=== PATIENT | female | born 1955 | race Caucasian/White ===

== ENCOUNTER → 2017-09-14 07:11 | Outpatient (CLI) | payer BC, SELFPAY ==
[2017-09-14 09:19] LABS: Alanine Aminotransferase 39 IU/L (9-52); Aspartate Aminotransferase 37 IU/L (14-36); BUN Creatinine Ratio 17.5 (6-22); Blood Urea Nitrogen 21 mg/dL (7-17); Calcium 9.8 mg/dL (8.4-10.2); Carbon Dioxide 30 mmol/L (22-32); Chloride 99 mmol/L (98-107); Cholesterol 190 mg/dL (140-199); Estimated Glomerular Filt Rate 45.7 mL/min (>60); Glucose 91 mg/dL (80-110); HDL Cholesterol 55 mg/dL (40-60); HEMOLYSIS < 15 (0-50); LDL Cholesterol Calculated 120 mg/dL (<100); Potassium 4.5 mmol/L (3.4-5.1); Sodium 140 mmol/L (137-145); Triglycerides 76 mg/dL (35-150)
== END ==
PROVIDERS: Visit Provider Internal Medicine
DX: I10 Essential (primary) hypertension (principal); E78.5 Hyperlipidemia, unspecified
CPT/HCPCS: 36415; 80048; 80061; 84450; 84460

== ENCOUNTER → 2017-12-24 13:18 | Outpatient (CLI) | payer BC, SELFPAY ==
--- NOTE | 2017-12-24 13:23 | DI.MG.S_ITS ---
BILATERAL DIGITAL SCREENING MAMMOGRAM 3D/2D WITH CAD: 12/24/2017 CLINICAL: Routine screening. Comparison is made to exams dated: 03/20/2016 mammogram, 03/24/2014 mammogram, and 01/27/2014 mammogram - [facility]. The tissue of both breasts is heterogeneously dense. This may lower the sensitivity of mammography. Current study was also evaluated with a Computer Aided Detection (CAD) system. No significant masses, calcifications, or other findings are seen in either breast. There has been no significant interval change. IMPRESSION: NEGATIVE There is no mammographic evidence of malignancy. A 1 year screening mammogram is recommended. NOTE: For mammograms, a report in lay terms will be sent to the patient. Approximately 15% of breast malignancies will not be visualized mammographically. In the management of a palpable breast mass, a negative mammogram must not discourage biopsy of a clinically suspicious lesion. Electronically Signed By: Alberto bingham/keo:12/24/2017 15:03:09 letter sent: Normal Exam ACR BI-RADS Category 1: Negative 3341F
== END ==
PROVIDERS: Visit Provider Internal Medicine
DX: Z12.31 Encounter for screening mammogram for malignant neoplasm of breast (principal)
CPT/HCPCS: 77063; 77067

== ENCOUNTER → 2018-11-26 14:46 | Outpatient (CLI) | payer OTHER, SELFPAY ==
--- NOTE | 2018-11-26 14:48 | DI.RAD.S_ITS ---
PROCEDURE: XR KNEE RT 3V INDICATIONS: right knee pain TECHNIQUE: 3 views of the knee were acquired. COMPARISON: None. FINDINGS: Bones: No fractures or dislocations. No suspicious bony lesions. Patellofem marginal osteophytes are noted within the patellofemoral and lateral tibiofemoral compartments. Soft tissues: There is a small to moderate-sized joint effusion. No suspicious soft tissue calcifications. IMPRESSION: 1. Mild degenerative changes of the right knee. 2. Knee joint effusion. Dictated by: Coleman Barker M.D. on 11/26/2018 at 14:29 Approved by: Coleman Barker M.D. on 11/26/2018 at 14:30
== END ==
PROVIDERS: PCP Internal Medicine; Visit Provider Physician Assistant
DX: M25.561 Pain in right knee (principal); M25.461 Effusion, right knee
CPT/HCPCS: 73562

== ENCOUNTER → 2018-12-27 08:38 | Outpatient (CLI) | payer OTHER, SELFPAY ==
[2018-12-27 10:49] LABS: Alanine Aminotransferase 21 IU/L (<35); Aspartate Aminotransferase 31 IU/L (14-36); BUN Creatinine Ratio 17.3 (6-22); Blood Urea Nitrogen 19 mg/dL (7-17); Calcium 9.8 mg/dL (8.4-10.2); Carbon Dioxide 31 mmol/L (22-32); Chloride 102 mmol/L (98-107); Cholesterol 183 mg/dL (140-199); Estimated Glomerular Filt Rate 50.3 mL/min (>60); Glucose 94 mg/dL (80-110); HDL Cholesterol 43 mg/dL (40-60); HEMOLYSIS < 15 (0-50); LDL Cholesterol Calculated 128 mg/dL (<100); Potassium 4.5 mmol/L (3.4-5.1); Sodium 140 mmol/L (137-145); Triglycerides 58 mg/dL (35-150)
[2018-12-27 11:20] LABS: TSH w/ Reflex to FT4 2.17 uIU/mL (0.47-4.68)
== END ==
PROVIDERS: PCP Internal Medicine; Visit Provider Internal Medicine
DX: I10 Essential (primary) hypertension (principal); E78.5 Hyperlipidemia, unspecified; E66.3 Overweight
CPT/HCPCS: 36415; 80048; 80061; 84443; 84450; 84460

== ENCOUNTER → 2018-12-30 10:46 | Outpatient (CLI) | payer OTHER, SELFPAY ==
--- NOTE | 2018-12-30 | DI.MG.S_ITS ---
BILATERAL DIGITAL SCREENING MAMMOGRAM 3D/2D WITH CAD: 12/30/2018 CLINICAL: Routine screening. Comparison is made to exams dated: 12/24/2017 mammogram - [facility], 03/20/2016 mammogram, and 03/24/2014 mammogram - [facility]. The tissue of both breasts is heterogeneously dense. This may lower the sensitivity of mammography. Current study was also evaluated with a Computer Aided Detection (CAD) system. There are benign calcifications in both breasts. There also is a biopsy clip in the left breast. No significant masses, calcifications, or other findings are seen in either breast. There has been no significant interval change. IMPRESSION: There is no mammographic evidence of malignancy. A 1 year screening mammogram is recommended. This exam was interpreted at Station ID: [id number]. NOTE: For mammograms, a report in lay terms will be sent to the patient. Approximately 15% of breast malignancies will not be visualized mammographically. In the management of a palpable breast mass, a negative mammogram must not discourage biopsy of a clinically suspicious lesion. Electronically Signed By: Brandon simmons/keo:12/30/2018 11:36:03 letter sent: Normal Exam ACR BI-RADS Category 2: Benign Finding(s) 3342F
== END ==
PROVIDERS: PCP Internal Medicine; Visit Provider Internal Medicine
DX: Z12.31 Encounter for screening mammogram for malignant neoplasm of breast (principal)
CPT/HCPCS: 77063; 77067

== ENCOUNTER → 2020-01-09 07:35 | Outpatient (CLI) | payer BC, SELFPAY ==
[2020-01-09 08:42] LABS: Alanine Aminotransferase 18 IU/L (<35); Albumin 4.5 g/dL (3.5-5.0); Albumin Globulin Ratio 1.3 (1.0-2.8); Alkaline Phosphatase 73 U/L (38-126); Aspartate Aminotransferase 30 IU/L (14-36); BUN Creatinine Ratio 25.9 (6-22); Bilirubin Total 0.4 mg/dL (0.2-1.3); Blood Urea Nitrogen 28 mg/dL (7-17); Calcium 9.9 mg/dL (8.4-10.2); Carbon Dioxide 31 mmol/L (22-32); Chloride 102 mmol/L (98-107); Cholesterol 188 mg/dL (140-199); Estimated Glomerular Filt Rate 51.2 mL/min (>60); Globulin 3.4 g/dL (1.7-4.1); Glucose 107 mg/dL (80-110); HDL Cholesterol 44 mg/dL (40-60); HEMOLYSIS < 15 (0-50); LDL Cholesterol Calculated 123 mg/dL (<100); Potassium 4.8 mmol/L (3.4-5.1); Sodium 139 mmol/L (137-145); Total Protein 7.9 g/dL (6.3-8.2); Triglycerides 105 mg/dL (35-150)
== END ==
PROVIDERS: PCP Internal Medicine; Referring Provider Internal Medicine; Visit Provider Internal Medicine
DX: I10 Essential (primary) hypertension (principal); E78.5 Hyperlipidemia, unspecified
CPT/HCPCS: 36415; 80053; 80061

== ENCOUNTER → 2020-02-26 13:47 | Outpatient (CLI) | payer BC, SELFPAY ==
--- NOTE | 2020-02-26 | DI.MG.S_ITS ---
BILATERAL DIGITAL SCREENING MAMMOGRAM 3D/2D WITH CAD: 02/26/2020 CLINICAL: Routine screening. Comparison is made to exams dated: 12/30/2018 mammogram, 12/24/2017 mammogram - [facility], and 03/20/2016 mammogram - [facility]. The tissue of both breasts is heterogeneously dense. This may lower the sensitivity of mammography. Current study was also evaluated with a Computer Aided Detection (CAD) system. There are benign calcifications in both breasts. There also is a biopsy clip in the left breast. No significant masses, calcifications, or other findings are seen in either breast. There has been no significant interval change. IMPRESSION: BENIGN There is no mammographic evidence of malignancy. A 1 year screening mammogram is recommended. This exam was interpreted at Station ID: [id number]. NOTE: For mammograms, a report in lay terms will be sent to the patient. Approximately 15% of breast malignancies will not be visualized mammographically. In the management of a palpable breast mass, a negative mammogram must not discourage biopsy of a clinically suspicious lesion. Electronically Signed By: Malik claudio/keo:02/26/2020 14:55:52 letter sent: Normal Exam ACR BI-RADS Category 2: Benign Finding(s) 3342F
== END ==
PROVIDERS: PCP Internal Medicine; Referring Provider Internal Medicine; Visit Provider Internal Medicine
DX: Z12.31 Encounter for screening mammogram for malignant neoplasm of breast (principal)
CPT/HCPCS: 77063; 77067

== ENCOUNTER → 2021-01-19 10:47 | Outpatient (CLI) | payer BC, SELFPAY ==
--- NOTE | 2021-01-19 | DI.MG.S_ITS ---
BILATERAL DIGITAL SCREENING MAMMOGRAM 3D/2D WITH CAD: 01/19/2021 CLINICAL: Routine screening. Comparison is made to exams dated: 02/26/2020 mammogram, 12/30/2018 mammogram, and 12/24/2017 mammogram - [facility]. The tissue of both breasts is heterogeneously dense. This may lower the sensitivity of mammography. Current study was also evaluated with a Computer Aided Detection (CAD) system. There are benign calcifications in both breasts. There also is a biopsy clip in the left breast. No significant masses, calcifications, or other findings are seen in either breast. There has been no significant interval change. IMPRESSION: BENIGN There is no mammographic evidence of malignancy. A 1 year screening mammogram is recommended. This exam was interpreted at Station ID: [id number]. NOTE: For mammograms, a report in lay terms will be sent to the patient. Approximately 15% of breast malignancies will not be visualized mammographically. In the management of a palpable breast mass, a negative mammogram must not discourage biopsy of a clinically suspicious lesion. Electronically Signed By: Daniel Maldonado M.D., jr/keo:01/19/2021 12:56:06 letter sent: Normal Exam ACR BI-RADS Category 2: Benign Finding(s) 3342F
== END ==
PROVIDERS: PCP Internal Medicine; Referring Provider Internal Medicine; Visit Provider Internal Medicine
DX: Z12.31 Encounter for screening mammogram for malignant neoplasm of breast (principal)
CPT/HCPCS: 77063; 77067

== ENCOUNTER → 2022-01-27 10:43 | Outpatient (CLI) | payer MEDICARE, OTHER, SELFPAY ==
--- NOTE | 2022-01-27 | DI.MG.S_ITS ---
BILATERAL DIGITAL SCREENING MAMMOGRAM 3D/2D WITH CAD: 01/27/2022 CLINICAL: Routine screening. Comparison is made to exams dated: 01/19/2021 mammogram, 02/26/2020 mammogram, and 12/30/2018 mammogram - [facility]. Both breasts are heterogeneously dense, which may obscure small masses (category c / 51-75% glandular tissue). Current study was also evaluated with a Computer Aided Detection (CAD) system. There is a biopsy clip in the left breast. No significant masses, calcifications, or other findings are seen in either breast. There has been no significant interval change. IMPRESSION: NEGATIVE There is no mammographic evidence of malignancy. A 1 year screening mammogram is recommended. Based on the Tyrer Cuzick model (a risk assessment model) the patient's lifetime risk is 10.0% and her 10 year risk is 4.8%. According to the ACR, ACS, and NCCN guidelines, an annual breast MRI exam along with mammogram is recommended if the patient's lifetime risk is 20% or greater. This exam was interpreted at Station ID: [id number]. NOTE: For mammograms, a report in lay terms will be sent to the patient. Approximately 15% of breast malignancies will not be visualized mammographically. In the management of a palpable breast mass, a negative mammogram must not discourage biopsy of a clinically suspicious lesion. Electronically Signed By: Chiquis barber/keo:01/27/2022 14:29:15 letter sent: Normal Exam ACR BI-RADS Category 1: Negative 3341F
--- NOTE | 2022-01-27 | DI.RAD.S_ITS ---
PROCEDURE: XR DEXA AXIAL SKELETON INDICATIONS: OSTEOPOROSIS SCREENING COMPARISON: None. FINDINGS: This blank DEXA report has been sent in error by the PACS system. The correct and complete report will be forthcoming in 1-2 days. Thank you for your patience and understanding. Dictated by: Iveth Jean M.D. on 01/27/2022 at 12:03 Approved by: Iveth eJan M.D. on 01/27/2022 at 12:03
== END ==
PROVIDERS: PCP Internal Medicine; Referring Provider Internal Medicine; Visit Provider Internal Medicine
DX: Z12.31 Encounter for screening mammogram for malignant neoplasm of breast (principal); M85.88 Other specified disorders of bone density and structure, other site; Z13.820 Encounter for screening for osteoporosis; Z78.0 Asymptomatic menopausal state; K50.90 Crohn's disease, unspecified, without complications
CPT/HCPCS: 77063; 77067; 77080

== ENCOUNTER → 2022-04-20 08:47 | Outpatient (CLI) | payer MEDICARE, OTHER, SELFPAY ==
--- NOTE | 2022-04-20 08:49 | DI.RAD.S_ITS ---
PROCEDURE: XR ANKLE LT MIN 3V INDICATIONS: Calcaneal spur, left foot TECHNIQUE: 3 views of the ankle were acquired. COMPARISON: None. FINDINGS: Bones: No fracture or dislocation. Ankle mortise is normally aligned. There is a prominent plantar calcaneal spur without erosive change. There is dorsal plantar calcaneal spur at the Achilles insertion which is fragmented slightly. Minimal degenerative change at the tibiotalar joint. No suspicious bone lesions. Soft tissues: No tibiotalar joint effusion. Achilles tendon appears normal. IMPRESSION: 1. Moderate size plantar calcaneal spur without erosion. 2. Dorsal calcaneal spurring or enthesopathy at the Achilles insertion. Dictated by: Chiquis Stern M.D. on 04/20/2022 at 9:43 Approved by: Chiquis Stern M.D. on 04/20/2022 at 9:44
--- NOTE | 2022-04-20 08:49 | DI.RAD.S_ITS ---
PROCEDURE: XR FOOT LT MIN 3V INDICATIONS: Calcaneal spur, left foot TECHNIQUE: 3 views of the foot were acquired. COMPARISON: None. FINDINGS: Bones: No fractures or dislocations. Moderate size plantar calcaneal spur and enthesopathy versus dorsal spurring at the Achilles insertion. No pes planus deformity. Minor degeneration and joint space loss at the lateral aspect of the 1st MTP joint. No suspicious bony lesions. Soft tissues: No tibiotalar joint effusion. Achilles tendon appears normal. IMPRESSION: 1. Normal bone alignment. 2. Minor 1st MTP joint degeneration. 3. Her calcaneal spur appear Dictated by: Chiquis Stern M.D. on 04/20/2022 at 9:44 Approved by: Chiquis Stern M.D. on 04/20/2022 at 9:47
== END ==
PROVIDERS: PCP Internal Medicine; Referring Provider Podiatrist Foot & Ankle Surgery; Visit Provider Podiatrist Foot & Ankle Surgery
DX: M77.32 Calcaneal spur, left foot (principal); M77.52 Other enthesopathy of left foot and ankle
CPT/HCPCS: 73610; 73630

== ENCOUNTER 2022-05-10 11:53 | Day surgery (SDC) | payer MEDICARE, OTHER, SELFPAY ==
--- NOTE | 2022-05-10 | PATH_ITS ---
[facility] Accession Number: [id number] No. of containers..01 Tissue . 01 Material submitted: . colon - SIGMOID COLON POLYP . 01 Diagnosis: Sigmoid Colon, Polyp, Biopsy: Hyperplastic polyp. MRV 05/16/2022 1648 Local . 01 Electronically signed: . Jessica Germain MD, Pathologist NPI- [id number] . 01 Gross description: . SIGMOID COLON POLYP: Received in formalin is 1 fragment(s) of mclain, soft tissue measuring 0.4 x 0.2 x 0.2 cm submitted entirely in 1 cassette(s) /CPE 05/11/2022 0757 Local . 01 Pathologist provided ICD-10: K63.5 . 01 CPT . 733327 Specimen Comment: A courtesy copy of this report has been sent to [phone] Performed at: 01 [facility] [address] [place] [address], [place], [place] [id number] MD Alberto Webb MD Phone: [phone]
[2022-05-10] MEDS: LACTATED RINGERS 1,000 ML 100 ML IV (12:18)
[2022-05-10 12:27] VITALS: BP 141/83; PULSE 104; RESP 16; TEMP 36.4; O2SAT 97; BMI 26.6
--- NOTE | 2022-05-10 13:03 | PM.HP.1 ---
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 Obstructive sleep apnea Right knee pain Family & Social History Social History: household members spouse Tobacco & Substance use: Smoking Status Never smoker alcohol intake current alcohol intake frequency a few times a month Substance Use Type does not use Meds Home Medications and Allergies Home Medications Medication Instructions Recorded Confirmed Type cholesterol med PO 11/26/18 08/31/21 History lisinopril 40 mg tablet 40 mg PO DAILY 11/26/18 08/31/21 History hydrochlorothiazide 25 mg tablet 25 mg PO DAILY 06/08/20 05/10/22 History Allergies Allergy/AdvReac Type Severity Reaction Status Date / Time Penicillins Allergy Mild rash Verified 05/10/22 12:19 Exam Vital Signs (past 8 hours): - 05/10/22 12:27 Temperature 97.5 F L Pulse Rate 104 H Respiratory Rate 16 Blood Pressure 141/83 H Pulse Oximetry 97 Oxygen Delivery Method Room Air Oxygen Delivery Method Room Air Narrative Exam Narrative: Oropharynx free of lesions Chest clear to auscultation percussion Cardiac exam reveals no S3 or murmur Assessment & Plan Assessment & Plan narrative: Personal history of colon polyp though unclear if adenomatous. In addition I history of Crohn's disease felt to be very mild in never placed on medication. Patient continues to have intermittent bloating and discomfort. Risks benefits and alternatives to colonoscopy have been explained. Time Spent With Patient Critical Care time: I spent a total of [] minutes of critical care time on this patient's care today; this time is exclusive of procedural time.
--- NOTE | 2022-05-10 13:04 | PM.OP.COLON ---
Operative Date/Time/Diagnoses Date of procedure: 05/10/22 Pre-op diagnosis: See indication and findings Procedure & Clinicians Study performed: Colonoscopy Indications: History of polyps and history of Crohn's Surgeon: Kemar Holley Procedure Notes Procedure in detail: After informed consent was obtained the patient was placed in left lateral decubitus position. The video colonoscope was introduced the rectum slowly advanced to the cecum. IC valve was identified and intubated. Preparation was good. On slow withdrawal mucosa was carefully examined. The scope was removed. The patient tolerated procedure well. Blood loss none Complications none Sedation propofol Findings 1. 8 x 3 mm polyp in the sigmoid colon cold snared and removed x2, though only 1 piece was retrieved 2. Otherwise normal colonoscopy to cecum. 3. Normal terminal ileum Is no evidence of active Crohn's here so the bloating and discomfort could be from small bowel Crohn's or merely for food intolerance holes. Will get the results for polyp but I expect showed will need follow-up for at least 5-7 years. All all all
[2022-05-10 13:37] VITALS: BP 102/66; PULSE 79; RESP 12; TEMP 36.9; O2SAT 94
[2022-05-10 13:45] VITALS: BP 106/70; PULSE 73; RESP 12; O2SAT 97
[2022-05-10 13:47] VITALS: BP 106/70; PULSE 76; RESP 14; O2SAT 97
[2022-05-10 14:11] VITALS: BP 121/59; PULSE 75; RESP 16; TEMP 36.9; O2SAT 99
== END 2022-05-10 14:14 | disposition home or self-care (01) ==
PROVIDERS: PCP Internal Medicine; Referring Provider Internal Medicine Gastroenterology; Visit Provider Internal Medicine Gastroenterology
PROC: 0DJD8ZZ Inspection of Lower Intestinal Tract, Via Natural or Artificial Opening Endoscopic (ICD-10-PCS; CPT 45378; principal; 2022-05-10 13:00)
DX: Z12.11 Encounter for screening for malignant neoplasm of colon (principal); Z86.010 Personal history of colon polyps; Z87.19 Personal history of other diseases of the digestive system; K63.5 Polyp of colon
CPT/HCPCS: 45385; J2704

== ENCOUNTER → 2023-03-06 16:20 | Outpatient (CLI) | payer MEDICARE, OTHER, SELFPAY ==
--- NOTE | 2023-03-06 | DI.MG.S_ITS ---
BILATERAL DIGITAL SCREENING MAMMOGRAM 3D/2D WITH CAD: 03/06/2023 CLINICAL: Routine screening. Comparison is made to exams dated: 01/27/2022 mammogram, 01/19/2021 mammogram, and 02/26/2020 mammogram - [facility]. Both breasts are heterogeneously dense, which may obscure small masses (category c / 51-75% glandular tissue). Current study was also evaluated with a Computer Aided Detection (CAD) system. There is a biopsy clip in the left breast. No significant masses, calcifications, or other findings are seen in either breast. There has been no significant interval change. IMPRESSION: NEGATIVE There is no mammographic evidence of malignancy. A 1 year screening mammogram is recommended. Based on the Tyrer Cuzick model (a risk assessment model) the patient's lifetime risk is 9.6% and her 10 year risk is 4.8%. According to the ACR, ACS, and NCCN guidelines, an annual breast MRI exam along with mammogram is recommended if the patient's lifetime risk is 20% or greater. This exam was interpreted at Station ID: [id number]. NOTE: For mammograms, a report in lay terms will be sent to the patient. Approximately 15% of breast malignancies will not be visualized mammographically. In the management of a palpable breast mass, a negative mammogram must not discourage biopsy of a clinically suspicious lesion. Electronically Signed By: Ritesh mitchell/keo:03/07/2023 11:52:33 letter sent: Normal Exam ACR BI-RADS Category 1: Negative 3341F
== END ==
LOC: MAMMO 16:21
PROVIDERS: PCP Internal Medicine; Referring Provider Internal Medicine; Visit Provider Internal Medicine
DX: Z12.31 Encounter for screening mammogram for malignant neoplasm of breast (principal); R92.333 Mammographic heterogeneous density, bilateral breasts
CPT/HCPCS: 77063; 77067

== ENCOUNTER 2023-09-19 01:18 | Emergency (ER) | payer MEDICARE, OTHER, SELFPAY ==
[2023-09-19 01:23] VITALS: BP 208/90; PULSE 78; RESP 16; TEMP 36.6; O2SAT 98; BMI 27.3
--- NOTE | 2023-09-19 01:27 | DI.RAD.S_ITS ---
PROCEDURE: XR CHEST 1V INDICATIONS: chest pain TECHNIQUE: One view of the chest was acquired. COMPARISON: None. FINDINGS: Surgical changes and devices: Surgical clips in right upper quadrant compatible with prior cholecystectomy. Lungs and pleura: Diffuse interstitial prominence. Minimal perihilar airway thickening. No dense consolidation. No pneumothorax. No pleural effusion. Mediastinum: Mediastinal contours appear normal. Heart size is normal. Bones and chest wall: No suspicious bony lesions. Overlying soft tissues appear unremarkable. IMPRESSION: Diffuse interstitial prominence and mild perihilar airway thickening. Findings are nonspecific but may represent bronchitis either infectious or inflammatory in etiology. Early/mild pulmonary edema or CHF may have a similar appearance if clinically appropriate. No focal consolidation seen. Dictated by: Brandon Goldman M.D. on 09/19/2023 at 2:02 Approved by: Brandon Goldman M.D. on 09/19/2023 at 2:04
--- NOTE | 2023-09-19 01:33 | EKG_ITS ---
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
[2023-09-19 01:50] LABS: Add Manual Diff / Slide Review NO; Basophils Absolute Auto 100 /uL (0-100); Basophils Percent Auto 1.2 % (0-2); Eosinophils Absolute Auto 300 /uL (0-450); Eosinophils Percent Auto 3.4 % (2-4); Hematocrit 39.9 % (36-46); Hemoglobin 13.5 g/dL (12.0-16.0); Lymphocytes Absolute Auto 2500 /uL (1100-4500); Mean Corpuscular HGB Conc 33.8 % (30-36); Mean Corpuscular Hemoglobin 30.9 PG (26-34); Mean Corpuscular Volume 91.6 fL (80-100); Monocytes Absolute Auto 700 /uL (0-900); Monocytes Percent Auto 9.9 % (3-14); Neutrophils Absolute Auto 3800 /uL (1500-7000); Neutrophils Percent Auto 51.5 % (50-75); Platelet Count 287 X10^3/uL (150-400); Red Blood Cell Count 4.36 X10^6/uL (4.0-5.2); White Blood Cell Count 7.4 X10^3/uL (4.5-11.0)
[2023-09-19 01:51] LABS: Prothrombin Time 11.2 SECONDS (9.4-12.5)
[2023-09-19 01:54] LABS: PTT Partial Thromboplastin Tim 36 SECONDS (25.1-36.5)
[2023-09-19 02:06] LABS: Alanine Aminotransferase 23 IU/L (<35); Albumin 4.5 g/dL (3.5-5.0); Albumin Globulin Ratio 1.3 (1.0-2.8); Alkaline Phosphatase 91 U/L (38-126); Aspartate Aminotransferase 35 IU/L (14-36); BUN Creatinine Ratio 27.8 (6-22); Bilirubin Total 0.6 mg/dL (0.2-1.3); Blood Urea Nitrogen 35 mg/dL (7-17); Calcium 9.6 mg/dL (8.4-10.2); Carbon Dioxide 24 mmol/L (22-32); Chloride 102 mmol/L (98-107); Creatine Kinase 97 U/L (30-135); Estimated Glomerular Filt Rate 47 mL/min (>60); Globulin 3.6 g/dL (1.7-4.1); Glucose 110 mg/dL (80-110); HEMOLYSIS 28 (0-50); Lipase 243 U/L (23-300); Magnesium 2.2 mg/dL (1.6-2.3); Potassium 3.9 mmol/L (3.4-5.1); Sodium 135 mmol/L (137-145); Total Protein 8.1 g/dL (6.3-8.2)
[2023-09-19 02:17] LABS: NT-proBNP (BNP-Adult 18+) 104 pg/mL (<125); Troponin I < 0.012 ng/mL (0.01-0.034)
[2023-09-19 04:32] VITALS: BP 209/93; PULSE 71; RESP 18; O2SAT 98
[2023-09-19 05:00] VITALS: BP 180/85; PULSE 70; O2SAT 100
--- NOTE | 2023-09-19 05:17 | ED.GENADULT ---
HPI - General Adult General Chief complaint: Hypertension Stated complaint: BLOOD PRESSURE HIGH Time Seen by Provider: 09/19/23 04:49 Source: patient Mode of arrival: Ambulatory History of Present Illness HPI narrative: 68-year-old female with history of hypertension, most recently taking lisinopril 40 mg each morning, and hydrochlorothiazide 25 mg each evening, in the past she had taken amlodipine but had problems with ankle swelling and discontinue that medication. She had elevated blood pressure readings at home, 200/90 range, and was nervous about the results, continue to cut care blood pressure. She had headache pounding sensation, was worried that it was related to her blood pressure. She denied chest pain or shortness of breath. She denies recent fevers chills coughs runny nose cold-like symptoms, denies use of moxf-sik-irpvvfe cough cold medication. She does take Claritin and Benadryl for allergy symptoms, without decongestant formulation. She is here mostly concerned about her blood pressure. Related Data Home Medications Medication Instructions Recorded Confirmed cholesterol med PO 11/26/18 06/08/22 lisinopril 40 mg tablet 40 mg PO DAILY 11/26/18 06/08/22 hydrochlorothiazide 25 mg tablet 25 mg PO DAILY 06/08/20 06/08/22 Previous Rx's Medication Instructions Recorded cyclobenzaprine 5 mg tablet 5 mg PO TID PRN muscle spasm #20 06/08/22 tabs amlodipine 5 mg tablet 5 mg PO DAILY #30 tabs 09/19/23 Allergies Allergy/AdvReac Type Severity Reaction Status Date / Time Penicillins Allergy Mild rash Verified 06/08/22 07:26 Review of Systems Review of Systems Narrative: see HPI Patient History Medical History 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 HEAD: Atraumatic. Normocephalic. EYES: Pupils equal round and reactive. Extraocular motions intact. No scleral icterus. No injection or drainage. ENT: Nose without bleeding, purulent drainage. Throat without erythema, tonsillar hypertrophy or exudate. Airway patent. NECK: Trachea midline. Non tender CARDIOVASCULAR: Regular rate and rhythm without murmurs, gallops, or rubs. RESPIRATORY: Clear to auscultation. Breath sounds equal bilaterally. No wheezes, rales, or rhonchi. GASTROINTESTINAL: Abdomen soft, non-tender, nondistended. EXTREMITIES: No edema or joint tenderness. BACK: Nontender without deformity or crepitance. No flank tenderness. NEURO: AOx3. SKIN: No rash or erythema of visible areas Initial Vital Signs Initial Vital Signs: Vital Signs Temperature 97.8 F 09/19/23 01:23 Pulse Rate 78 09/19/23 01:23 Respiratory Rate 16 09/19/23 01:23 Blood Pressure 208/90 H 09/19/23 01:23 Pulse Oximetry 98 09/19/23 01:23 Oxygen Delivery Method Room Air 09/19/23 01:23 Course Orders Ordered: Discontinued Medications Aspirin (Aspirin 81 Mg Chew Tab) 324 mg PO NOW ONE Stop: 09/19/23 01:28 Vital Signs Vital signs: Vital Signs - 8 hr 09/19/23 01:23 09/19/23 04:32 09/19/23 04:32 Temperature 97.8 F Pulse Rate 78 71 Respiratory Rate 16 18 Blood Pressure 208/90 H 209/93 H Pulse Oximetry 98 98 Oxygen Delivery Method Room Air Medical Decision Making Lab Data Lab results reviewed: Yes I reviewed the patient's lab results. 09/19/23 01:38 09/19/23 01:38 Labs: Lab Results 09/19/23 Range/Units 01:38 WBC 7.4 (4.5-11.0) X10^3/uL RBC 4.36 (4.0-5.2) X10^6/uL Hgb 13.5 (12.0-16.0) g/dL Hct 39.9 (36-46) % MCV 91.6 (80-100) fL MCH 30.9 (26-34) PG MCHC 33.8 (30-36) % RDW 13.0 (11.6-14.8) % Plt Count 287 (150-400) X10^3/uL Neut % (Auto) 51.5 (50-75) % Lymph % (Auto) 34.0 (25-40) % Grainger % (Auto) 9.9 (3-14) % Eos % (Auto) 3.4 (2-4) % Baso % (Auto) 1.2 (0-2) % Neut # (Auto) 3800 (9293-5711) /uL Lymph # (Auto) 2500 (0510-7891) /uL Grainger # (Auto) 700 (0-900) /uL Eos # (Auto) 300 (0-450) /uL Baso # (Auto) 100 (0-100) /uL PT 11.2 (9.4-12.5) SECONDS INR 1.0 (0.9-1.3) APTT 36 (25.1-36.5) SECONDS Sodium 135 L (137-145) mmol/L Potassium 3.9 (3.4-5.1) mmol/L Chloride 102 (98-107) mmol/L Carbon Dioxide 24 (22-32) mmol/L BUN 35 H (7-17) mg/dL Creatinine 1.26 H (0.52-1.04) mg/dL Estimated GFR 47 L (>60) mL/min BUN/Creatinine Ratio 27.8 H (6-22) Glucose 110 (80-110) mg/dL Calcium 9.6 (8.4-10.2) mg/dL Magnesium 2.2 (1.6-2.3) mg/dL Total Bilirubin 0.6 (0.2-1.3) mg/dL AST 35 (14-36) IU/L ALT 23 (<35) IU/L Alkaline Phosphatase 91 (38-126) U/L Total Creatine Kinase 97 (30-135) U/L Troponin I < 0.012 (0.01-0.034) ng/mL NT-Pro-B Natriuret Pep 104 (<125) pg/mL Total Protein 8.1 (6.3-8.2) g/dL Albumin 4.5 (3.5-5.0) g/dL Globulin 3.6 (1.7-4.1) g/dL Albumin/Globulin Ratio 1.3 (1.0-2.8) Lipase 243 (23-300) U/L ECG Data Attestation: I personally reviewed and interpreted this ECG as follows: Interpretation: Normal sinus rhythm with rate of 76, no obvious ST segment elevation or depression changes. T-wave inversion lead 3 noted. Upright T-waves in leads 2 and F. UT 164, QRS 80, QTC 468. MDM Narrative Medical decision making narrative: 68-year-old with hypertension, blood pressure elevation concerns, while on lisinopril 40 mg each morning, and hydrochlorothiazide 25 mg each evening, previously on amlodipine before diuretic that was discontinued because of lower extremity edema side effects. Blood pressure elevated here, decreased some without specific treatment. EKG without obvious ischemic changes, lab testing unremarkable. Consider restart of amlodipine. Consider continuing lisinopril at 40 mg each morning, with the addition of hydrochlorothiazide each morning, that hopefully will allow less diuresis that might interfere with sleep. Amlodipine could be added 5 mg daily previous dosing but use at night for now. Follow up with PCP for further blood pressure control issues. One month supply amlodipine sent to her pharmacy. She will take her morning doses of lisinopril and hydrochlorothiazide at home with her home supply. Declines any doses to be given here. Stable, home with Discharge Plan Departure Patient Disposition: Home Clinical Impression: Hypertension Instructions: DI for High Blood Pressure Activity Restrictions/Additional Instructions: History of hypertension, recent blood pressure elevation and pounding headache like symptoms concerning for possible side effect of high blood pressure. Previous experience with amlodipine discontinued due to ankle swelling side effects symptoms. Or recently been hydrochlorothiazide diuretic medication taken nightly, with lisinopril medication taking each morning. EKG tonight and screening laboratory studies unremarkable. Chest x-ray mentioned some bronchitis like changes, though you have not had any cough cold symptoms, no fever, lung exam unremarkable. Consider restart of amlodipine 5 mg daily dose, to perhaps be taken each evening. Consider change in your lisinopril 40 mg dose regimen, to be taken each morning in combination with hydrochlorothiazide 25 mg each morning, hopefully morning use of diuretic medication will not interfere with sleep cycle due to need for urination. Hopefully this combination will further improve her blood pressure control. One month supply amlodipine sent electronically to your pharmacy. Recheck blood pressure with your regular provider in the next week or 2. Return to this/nearest emergency department for any change worsening symptoms or any concerns prior Prescriptions: New amlodipine 5 mg tablet 5 mg PO DAILY Qty: 30 0RF No Action lisinopril 40 mg tablet 40 mg PO DAILY cholesterol med PO cyclobenzaprine 5 mg tablet 5 mg PO TID PRN (Reason: muscle spasm) Qty: 20 0RF hydrochlorothiazide 25 mg tablet 25 mg PO DAILY Referrals: Jasmin Serrano MD [Primary Care Provider] - Stand Alone Forms: Patient Portal/API
[2023-09-19 05:30] VITALS: BP 182/97; PULSE 74; RESP 18; O2SAT 99
[2023-09-19 05:59] VITALS: BP 169/86; PULSE 73; RESP 18; O2SAT 100
== END 2023-09-19 06:17 | disposition home or self-care (01) ==
PROVIDERS: Emergency Provider Emergency Medicine; PCP Internal Medicine
DX: I10 Essential (primary) hypertension (principal); R07.9 Chest pain, unspecified; Z79.899 Other long term (current) drug therapy
CPT/HCPCS: 36415; 71045; 80053; 82550; 83690; 83735; 83880; 84484; 85025; 85610; 85730; 93005; 99283; 99284

== ENCOUNTER → 2024-03-07 12:54 | Outpatient (CLI) | payer MEDICARE, OTHER, SELFPAY ==
--- NOTE | 2024-03-07 12:54 | DI.MG.S_ITS ---
BILATERAL DIGITAL SCREENING MAMMOGRAM 3D/2D WITH CAD: 03/07/2024 CLINICAL: Routine screening. Comparison is made to exams dated: 03/06/2023 mammogram, 01/27/2022 mammogram, and 01/19/2021 mammogram - [facility]. The breasts are heterogeneously dense, which may obscure small masses (category c / 51-75% glandular tissue). Current study was also evaluated with a Computer Aided Detection (CAD) system. There is a biopsy clip in the left breast. No significant masses, calcifications, or other findings are seen in either breast. There has been no significant interval change. IMPRESSION: NEGATIVE There is no mammographic evidence of malignancy. A 1 year screening mammogram is recommended. Based on the Tyrer Cuzick model (a risk assessment model) the patient's lifetime risk is 9.1% and her 10 year risk is 4.8%. According to the ACR, ACS, and NCCN guidelines, an annual breast MRI exam along with mammogram is recommended if the patient's lifetime risk is 20% or greater. This exam was interpreted at Station ID: [id number]. NOTE: For mammograms, a report in lay terms will be sent to the patient. Approximately 15% of breast malignancies will not be visualized mammographically. In the management of a palpable breast mass, a negative mammogram must not discourage biopsy of a clinically suspicious lesion. Electronically Signed By: Brandon [email or web address]:03/07/2024 19:56:49 letter sent: Normal Exam ACR BI-RADS Category 1: Negative
== END ==
PROVIDERS: PCP Internal Medicine; Referring Provider Internal Medicine; Visit Provider Internal Medicine
DX: Z12.31 Encounter for screening mammogram for malignant neoplasm of breast (principal); R92.333 Mammographic heterogeneous density, bilateral breasts
CPT/HCPCS: 77063; 77067